=== PATIENT | female | born 1945 | race Caucasian/White ===

== ENCOUNTER 2017-08-31 15:48 | Emergency (ER) | payer OTHER ==
--- NOTE | 2017-08-31 17:05 | RAD ---
RIGHT KNEE 4 VIEWS: Date: 08/31/17 HISTORY: Fall. COMPARISON: None. FINDINGS: No acute fracture or malalignment. Small osteophytes. IMPRESSION: 1. No acute fracture or malalignment. 2. Mild degenerative disease. 3. Old injury of the fibular neck. POS: LIZY
[2017-08-31] MEDS ORDERED: Ketorolac Tromethamine 30 MG/ML VIAL ONE (17:45)
== END 2017-08-31 17:59 | disposition home or self-care (01) ==
LOC: ERS 15:48
DX: S80.02XA Contusion of left knee, initial encounter (principal); F31.9 Bipolar disorder, unspecified; F41.9 Anxiety disorder, unspecified; F17.210 Nicotine dependence, cigarettes, uncomplicated; W17.89XA Other fall from one level to another, initial encounter
CPT/HCPCS: 96372; J1885

== ENCOUNTER 2018-02-25 10:39 | Outpatient (CLI) | payer MEDICARE ==
[2018-02-25 12:00] LABS: #Basophils 0.1 thou/uL (0.0-0.2); #Eosinphils 0.1 thou/uL (0.0-0.7); #Lymphocytes 2.5 thou/uL (1.20-3.40); #Monocytes 0.4 thou/uL (0.11-0.59); #Neutrophils 4.1 thou/uL (1.40-6.50); %Basophils 0.9 % (0.0-1.0); %Eosinophils 1.5 % (0.0-10.0); %Lymphocytes 34.6 % (21.0-51.0); %Monocytes 5.4 % (0.0-10.0); %Neutrophils 57.6 % (42.0-75.0); Hemoglobin 16.4 g/dL (12.0-16.0); Mean Corpuscular HGB CONC 32.8 g/dL (32.0-36.0); Mean Corpuscular Hemoglobin 31.1 pg (27.0-31.0); Mean Corpuscular Volume 94.9 fl (81.0-99.0); Mean Platelet Volume 7.8 fL (7.4-10.4); Platelet Count 214 thou/uL (130-400); RBC Distribution Width 12.4 % (11.5-14.5); Red Blood Cell (RBC) Count 5.26 mill/uL (4.20-5.40); White Blood Cell (WBC) Count 7.2 thou/uL (4.8-10.8)
[2018-02-25 12:22] LABS: Anion Gap 14 mmol/L (10-20); BUN (Urea Nitrogen) 11 mg/dL (9.8-20.1); Calc. Creatinine Clearance 0 mL/min (70-130); Calcium 9.6 mg/dL (7.8-10.44); Carbon Dioxide 25 mmol/L (23-31); Chloride 104 mmol/L (98-107); Estimated GFR-MDRD 67; Glucose 83 mg/dL (80-115); Potassium 4.2 mmol/L (3.5-5.1); Sodium 139 mmol/L (136-145)
--- NOTE | 2018-02-25 14:11 | EKG ---
Test Reason : Blood Pressure : / mmHG Vent. Rate : 063 BPM Atrial Rate : 063 BPM P-R Int : 156 ms QRS Dur : 112 ms QT Int : 420 ms P-R-T Axes : 074 -56 066 degrees QTc Int : 429 ms Normal sinus rhythm Left anterior fascicular block Left ventricular hypertrophy with repolarization abnormality Cannot rule out Septal infarct , age undetermined Abnormal ECG Confirmed by ELBA ANTONY ([id number]) on 02/25/2018 2:10:36 PM Referred By: STEPHEN Confirmed By:ELBA ANTONY
== END 2018-02-25 10:40 | disposition home or self-care (01) ==
LOC: LABBT 10:39
PROVIDERS: ATTEND Surgery
DX: Z01.818 Encounter for other preprocedural examination (principal); C50.912 Malignant neoplasm of unspecified site of left female breast
CPT/HCPCS: 80048; 85025; 93005; 93010

== ENCOUNTER → 2018-03-03 | Day surgery (SDC) | payer MEDICARE ==
[2018-02-25 10:56] VITALS: BMI 26.6
[~2018-03-03] MED LIST: Bupivacaine/Epinephrine 0.25% 30 ML VIAL ONE; CEFAZOLIN/Water 2 GM/20 ML SYRINGE ONE; Dexamethasone 20 MG/5 ML VIAL ONE; Fentanyl 100 MCG/2 ML VIAL ONE; Glycopyrrolate 0.2 MG/ML 5 ML SYRINGE ONE; HYDROcodone/Acetaminophen 5/325 mg Tablet ONE; Lidocaine 1% PF 5 ML VIAL ONE; Lidocaine 2% 10 ML INJ ONE; Ondansetron HCl/PF 4 MG/2 ML Vial ONE; PROPOFOL 200 MG/20 ML VIAL ONE; SUGAMMADEX SODIUM 200 MG/2 ML VIAL ONE; ePHEDrine/0.9% NaCl/PF SYRINGE 50 mg/10 ml ONE
--- NOTE | 2018-03-03 11:07 | NM ---
NUCLEAR MEDICINE LYMPHOSCINITIGRAPHY: Date: 03/03/18 HISTORY: 72-year-old female with malignant neoplasm of left breast. TECHNIQUE: 0.4 mCi of technetium-99m filtered sulfur colloid divided into 4 doses in 4 tuberculin syringes, were injected in 4 locations in a left periareolar distribution after cleansing of the areolar with alcoh ol swabs. Immediate anterior and lateral scintigraphy of the upper chest obtained. FINDINGS: There are multiple foci of uptake in left axillary lymph nodes, and faint uptake in what appear to be two internal mammary lymph nodes. IMPRESSION: Successful left breast lymphoscintigraphy, with demonstration of left axillary sentinel lymph nodes. POS: LIZY
--- NOTE | 2018-03-03 11:23 | MMO ---
LEFT BREAST NEEDLE LOCALIZATION: INDICATION: Left breast invasive ductal carcinoma. TECHNIQUE: Informed consent was obtained. Preprocedure resolution expert images demonstrate a small mass and surgical clip seen within the left breast 6 o'clock position, anterior depth, corresponding to the small left breas t mass and clip demonstrated on the diagnostic mammogram performed at [facility] on 02/21/18. The patient was placed in CC compression in the left breast and the mass and biopsy clip were localized along the inferior aspect of the left breast. The inferior aspect of the left breast was then sterilely prepped. 1.5 cc of buffered 1% Lidocaine was administered into the subcutaneous tissues. Under mammographic guidance, a 5 cm [place] needle was guided through the mass lesion. Posit ioning was confirmed on a 90-degree lateral projection. The tip of the needle was positioned 1.4 cm from the level of the mass. The wire was deployed. The patient tolerated the procedure without diff iculty. The patient was then escorted to the preoperative holding suite for the left breast excision . IMPRESSION: BI-RADS category 6 - known malignancy. The patient has undergone needle and wire localization for th e left breast mass. The patient is undergoing left breast cancer excision. POS: OFF
--- NOTE | 2018-03-04 10:29 | OP ---
DATE OF PROCEDURE: 03/03/2018 PREOPERATIVE DIAGNOSIS: Left breast invasive ductal cell carcinoma. POSTOPERATIVE DIAGNOSIS: Left breast invasive ductal cell carcinoma. PROCEDURES: 1. Left breast partial mastectomy after needle localization. 2. Left deep axillary node biopsy (sentinel node protocol). SURGEON: Emile Olson M.D. ANESTHESIA: General. ESTIMATED BLOOD LOSS: Minimal. COMPLICATIONS: None. SPECIMENS: 1. Left breast mass marked with two short superior, one long lateral and sent to path for final diag nosis. 2. [place] node x2 sent to path for final diagnosis. INDICATION: The patient presents with a biopsy proven left breast invasive ductal cell carcinoma, cl inical stage is T1 N0 MX. Risks, benefits, and alternatives discussed. She gave consent for partial mastectomy. DESCRIPTION OF PROCEDURE: On the morning of surgery, the patient underwent needle localization wire placement to previous left breast biopsy place. She also underwent lymphoscintigraphy. Taken to the operating room and laid supine on the operating room supine on the table. After general anesthetic was obtained, her left breast, chest, axilla and proximal arms all prepped and draped in a sterile fa shion. Curved incision made along the inferior hairline of the left axilla. Cautery dissected down through the clavipectoral fascia to expose the axillary contents. Neoprobe was used to find the area of increased nuclear uptake. A 5 mL of methylene blue dye had been infiltrated under the right nipp le before the procedure and massaged for five minutes. A couple areas of blue dye uptake were found. They also have increased radionucleotide uptake as well. Counts on the back table in the 400-500s. Removal of these two areas, the background counts dropped to near 0. The axillary wound is irrigat ed and closed using 3-0 Vicryl, 4-0 Monocryl, and Dermabond. Next, an incision was made on the left breast along the areolar edge in the area of previous needle localization wire placement. Flaps are raised superior medially, inferiorly laterally around the needle localization wire. Specimen sent to specimen. X-ray reveals the previous clip to be in the specimen. The specimen is marked with two sh ort superior, one long lateral and sent to path for final diagnosis. The wound is irrigated. Local anesthetic is applied. The wound is closed using 3-0 Vicryl, 4-0 Monocryl, and Dermabond. The patie nt was en route to recovery in stable condition. All instrument counts, needle counts, lap counts ar e correct.
== END ==
LOC: SDC 06:30
PROVIDERS: ATTEND Surgery
PROC: 0HBU0ZZ Excision of Left Breast, Open Approach (ICD-10-PCS; principal; 2018-03-03)
PROC: 07B60ZX Excision of Left Axillary Lymphatic, Open Approach, Diagnostic (ICD-10-PCS; 2018-03-03)
DX: C50.812 Malignant neoplasm of overlapping sites of left female breast (principal); F31.9 Bipolar disorder, unspecified; F17.200 Nicotine dependence, unspecified, uncomplicated; Z17.0 Estrogen receptor positive status [ER+]; Z88.1 Allergy status to other antibiotic agents; Z87.891 Personal history of nicotine dependence
CPT/HCPCS: 19281; 19301; 38525; 78195; 88184; 88307; 88331; 88332; 88333; 88334; 96374; A9541; Q9968; J1100; J2001; J2405; J2704; J3010

== ENCOUNTER 2018-03-23 10:38 | Outpatient (CLI) | payer MEDICARE | END 2018-03-23 10:39 | disposition home or self-care (01) | LOC: BICMAMMO 10:38 | PROVIDERS: ATTEND Surgery | DX: Z13.820 Encounter for screening for osteoporosis (principal); M85.852 Other specified disorders of bone density and structure, left thigh | CPT/HCPCS: 77080 ==

== ENCOUNTER 2019-01-27 10:13 | Outpatient (CLI) | payer MEDICARE ==
--- NOTE | 2019-01-27 11:57 | MMO ---
Bilateral MAMMO Bilat Diag [facility]DI+SHAN. CLINICAL HISTORY: Patient is 73 years old and is seen for diagnostic exam. The patient has no family history of breast cancer. The patient has a history of malignant (generic) in the left breast in January,. The patient has a history of left Ultrasound Guided Core Biopsy at age 72 - malignant and left Lumpectomy in Mar, 2018 - malignant. VIEWS: The views performed were: bilateral craniocaudal with tomosynthesis; bilateral mediolateral oblique with tomosynthesis; and bilateral mediolateral. FILMS COMPARED: The present examination has been compared to prior imaging studies performed at [facility] on 06/28/2012, 07/05/2013 and 02/06/2016, and at [facility] on 01/24/2018 and 02/11/2018. MAMMOGRAM FINDINGS: There are scattered fibroglandular densities. There is a stable post-surgical scar seen in the left breast. There are no suspicious masses, suspicious calcifications, or new areas of architectural distortion. IMPRESSION: THERE IS NO MAMMOGRAPHIC EVIDENCE OF MALIGNANCY. A ROUTINE FOLLOW-UP MAMMOGRAM IN 1 YEAR IS RECOMMENDED. THE RESULTS OF THIS EXAM WERE SENT TO THE PATIENT. ACR BI-RADS Category 2 - Benign finding MAMMOGRAPHY NOTE: 1. A negative mammogram report should not delay a biopsy if a dominant of clinically suspicious mass is present. 2. Approximately 10% to 15% of breast cancers are not detected by mammography. 3. Adenosis and dense breasts may obscure an underlying neoplasm.
== END 2019-01-27 10:14 | disposition home or self-care (01) ==
LOC: BICMAMMO 10:13 → EDSTATUS 10:30
PROVIDERS: ATTEND Nurse Practitioner Family
DX: C50.912 Malignant neoplasm of unspecified site of left female breast (principal)
CPT/HCPCS: 77066; G0279

== ENCOUNTER 2019-07-11 09:29 | Outpatient (CLI) | payer MEDICARE ==
--- NOTE | 2019-07-11 11:37 | CT ---
CT PULMONARY LUNG SCAN WITHOUT CONTRAST: Date: 07/11/19 INDICATION: 73-year-old female with 50+ pack/year smoking history; current smoker; nicotine dependence. COMPARISON: None. FINDINGS: There are numerous scattered ground-glass pulmonary nodules. The most conspicuous nodule is seen with in the anterior right upper lobe, adjacent to the right minor fissure, measuring 1.8 cm. Multiple sma ll scattered ground-glass nodules are seen within the right upper lobe, right lower lobe, left lower lobe, and left upper lobe. There is scattered centrilobular emphysema. There are coronary artery and thoracic aortic calcifications. There is a 4.1 cm left adrenal mass. Right adrenal gland is normal appearing. There are calcified gra nuloma within the spleen. There is partial visualization of an ACDF involving the cervical spine. There is multilevel spondylos is of the thoracic spine. No suspicious osteolytic or osteoblastic lesion is identified. IMPRESSION: 1. Lung-RADS category 3 - Probably benign. There are multiple scattered ground-glass nodules through out both lungs. This raises the possibility of an infectious or inflammatory etiology. Would recommen d consideration with appropriate broad spectrum antibiotics followed by a low dose CT examination in 1-2 months to document stability or resolution. 2. Category S: 4.1 cm left adrenal mass. Recommend further evaluation with a CT of the abdomen util izing adrenal mass protocol for further characterization. CODE T. POS: OFF
== END 2019-07-11 09:30 | disposition home or self-care (01) ==
LOC: CT 09:29
PROVIDERS: ATTEND Internal Medicine Hematology & Oncology
DX: F17.210 Nicotine dependence, cigarettes, uncomplicated (principal); R91.8 Other nonspecific abnormal finding of lung field; E27.8 Other specified disorders of adrenal gland
CPT/HCPCS: G0297

== ENCOUNTER 2019-09-07 08:17 | Outpatient (CLI) | payer MEDICARE ==
--- NOTE | 2019-09-07 10:02 | CT ---
EXAM: CT Abdomen W WO Con PROVIDED CLINICAL HISTORY: Left adrenal mass noted on CT pulmonary lung scan. COMPARISON: CT pulmonary lung scan on 07/11/2019. FINDINGS: Previously described left adrenal mass is again noted. Measurement on today's examination is approxim ately 4 cm. Attenuation coefficients obtained in several areas of the left adrenal lesion on noncontrast imaging suggests this represents an adrenal adenoma. The lung bases are clear. Calcified granulomata are seen in the spleen. There is a lobulated appearance of each kidney likely to lobulation. A nonobstructing calculus in the inferior pole left kidney measuring 4 mm is present. The liver, pancreas, and right adrenal gland demonstrate a normal CT appearance. There is a large calculus seen in the gallbladder measuring 3.5 cm. Vascular calcifications are seen in the abdominal aorta involving the iliac arteries. Incidental note is made of a retroaortic left renal vein. There is colonic diverticulosis seen involving the visualized colon. There is a small amount of fluid seen in the region of the epicardial fat on the right with may repre sent small amount of fluid within a pericardial recess. No free fluid, fluid collection, or lymphadenopathy is seen in the abdomen. IMPRESSION: 1. Left adrenal mass with attenuation coefficients on precontrast imaging most compatible with an adr enal adenoma. 2. Cholelithiasis with largest calculus in the gallbladder lumen.
[2019-09-07] MEDS ORDERED: Iopamidol-370 76% 500 ML 1 ML ONE (15:44)
== END 2019-09-07 08:18 | disposition home or self-care (01) ==
LOC: BICCT 08:17
PROVIDERS: ATTEND Internal Medicine Hematology & Oncology
DX: E27.8 Other specified disorders of adrenal gland (principal); R93.7 Abnormal findings on diagnostic imaging of other parts of musculoskeletal system; K80.20 Calculus of gallbladder without cholecystitis without obstruction
CPT/HCPCS: 74170; 82565; Q9967

== ENCOUNTER 2020-04-25 15:18 | Emergency (ER) | payer MEDICARE ==
--- NOTE | 2020-04-25 16:14 | RAD ---
XR Knee Rt 4 View STANDARD HISTORY: Right knee pain FINDINGS: No fracture or dislocation or bony destruction is identified. No significant osteophytosis is seen. N o joint effusion is identified.
[2020-04-25] MEDS ORDERED: Ketorolac Tromethamine 30 MG/ML VIAL ONE (16:15)
== END 2020-04-25 16:55 | disposition home or self-care (01) ==
LOC: ERS 15:18
DX: M25.561 Pain in right knee (principal); F41.9 Anxiety disorder, unspecified; F31.9 Bipolar disorder, unspecified; F17.210 Nicotine dependence, cigarettes, uncomplicated
CPT/HCPCS: 96372; J1885

== ENCOUNTER 2021-01-02 10:49 | Outpatient (CLI) | payer MEDICARE | END 2021-01-02 10:50 | disposition home or self-care (01) | LOC: BICCT 10:49 | PROVIDERS: ATTEND Internal Medicine Hematology & Oncology | DX: R91.1 Solitary pulmonary nodule (principal); R91.8 Other nonspecific abnormal finding of lung field; D35.02 Benign neoplasm of left adrenal gland | CPT/HCPCS: 71260; 82565 ==

== ENCOUNTER 2021-08-22 10:05 | Outpatient (CLI) | payer MEDICARE | END 2021-08-22 10:06 | disposition home or self-care (01) | LOC: BICMAMMO 10:05 | PROVIDERS: ATTEND Internal Medicine Hematology & Oncology | DX: Z08 Encounter for follow-up examination after completed treatment for malignant neoplasm (principal); M85.80 Other specified disorders of bone density and structure, unspecified site; M81.0 Age-related osteoporosis without current pathological fracture; Z85.3 Personal history of malignant neoplasm of breast | CPT/HCPCS: 77066; 77080; G0279 ==

== ENCOUNTER 2021-09-06 14:38 | Emergency (ER) | payer MEDICARE ==
[2021-09-06] MEDS ORDERED: Ketorolac Tromethamine 30 MG/ML VIAL ONE (17:04)
== END 2021-09-06 17:22 | disposition home or self-care (01) ==
LOC: ERS 14:38
DX: M54.50 Low back pain, unspecified (principal); F17.210 Nicotine dependence, cigarettes, uncomplicated
CPT/HCPCS: 96372; 99283; J1885

== ENCOUNTER 2022-01-01 12:16 | Outpatient (CLI) | payer MEDICARE | END 2022-01-01 12:17 | disposition home or self-care (01) | LOC: BICCT 12:16 | PROVIDERS: ATTEND Internal Medicine Hematology & Oncology | DX: C50.812 Malignant neoplasm of overlapping sites of left female breast (principal); R91.1 Solitary pulmonary nodule; F17.210 Nicotine dependence, cigarettes, uncomplicated; J98.4 Other disorders of lung; I70.90 Unspecified atherosclerosis; E27.8 Other specified disorders of adrenal gland | CPT/HCPCS: 71260; 82565 ==

== ENCOUNTER 2023-01-28 12:13 | Emergency (ER) | payer OTHER ==
[2023-01-28 13:55] LABS: #Eosinphils 0.1 thou/uL (0.0-0.7); #Lymphocytes 2.3 thou/uL (1.20-3.40); #Monocytes 0.8 thou/uL (0.11-0.59); #Neutrophils 6.6 thou/uL (1.40-6.50); %Eosinophils 0.7 % (0.0-10.0); %Lymphocytes 23.3 % (21.0-51.0); %Monocytes 7.9 % (0.0-10.0); Hemoglobin 14.8 g/dL (12.0-16.0); Mean Corpuscular HGB CONC 30.5 g/dL (32.0-36.0); Mean Corpuscular Volume 98.6 fl (78.0-98.0); Mean Platelet Volume 7.2 fL (7.4-10.4); Platelet Count 241 10x3/uL (130-400); RBC Distribution Width 12.3 % (11.5-14.5); Red Blood Cell (RBC) Count 4.92 mill/uL (4.20-5.40); White Blood Cell (WBC) Count 9.8 10x3/uL (4.8-10.8)
[2023-01-28 14:21] LABS: ALT (SGPT) 15 U/L (8-55); AST (SGOT) 15 U/L (5-34); Albumin 3.3 g/dL (3.4-4.8); Alkaline Phosphatase 86 U/L (40-110); Anion Gap 13 mmol/L (10-20); BUN (Urea Nitrogen) 14 mg/dL (9.8-20.1); Bilirubin, Total 0.2 mg/dL (0.2-1.2); CK (CPK) 54 U/L (29-168); Calc. Creatinine Clearance 0 mL/min (70-130); Calcium 8.9 mg/dL (7.8-10.44); Carbon Dioxide 29 mmol/L (23-31); Chloride 102 mmol/L (98-107); Estimated GFR 77; Globulin 3.5 g/dL (2.4-3.5); Glucose 78 mg/dL (83-110); Potassium 3.6 mmol/L (3.5-5.1); Protein, Total 6.8 g/dL (5.8-8.1); Sodium 140 mmol/L (136-145)
[2023-01-28] MEDS ORDERED: Aspirin Chewable 81 MG TAB ONE (17:48)
[2023-01-28] MEDS ORDERED: Ketorolac Tromethamine 30 MG/ML VIAL ONE (17:48)
== END 2023-01-28 18:20 | disposition home or self-care (01) ==
LOC: ERS 12:13
DX: M54.6 Pain in thoracic spine (principal); J18.0 Bronchopneumonia, unspecified organism; R01.1 Cardiac murmur, unspecified; F17.210 Nicotine dependence, cigarettes, uncomplicated
CPT/HCPCS: 36415; 71045; 71275; 80053; 82550; 83880; 84484; 85025; 93005; 94760; 96374; J1885

== ENCOUNTER 2023-07-09 13:14 | Outpatient (CLI) | payer OTHER | END 2023-07-09 13:15 | disposition home or self-care (01) | LOC: BICMAMMO 13:14 | PROVIDERS: ATTEND Nurse Practitioner Family | DX: Z08 Encounter for follow-up examination after completed treatment for malignant neoplasm (principal); Z85.3 Personal history of malignant neoplasm of breast | CPT/HCPCS: 77066; G0279 ==

== ENCOUNTER 2024-10-12 11:06 | Emergency (ER) | payer OTHER ==
[2024-10-12 11:42] LABS: #Basophils 0.05 10x3/uL (0.0-0.2); %Basophils 0.9 % (0.0-1.0); %Eosinophils 3.2 % (0.0-10.0); %Lymphocytes 18.2 % (21.0-51.0); %Monocytes 8.3 % (0.0-10.0); Hematocrit 53.6 % (36.0-47.0); Mean Corpuscular HGB CONC 31.7 g/dL (32.0-36.0); Mean Corpuscular Hemoglobin 30.2 pg (27.0-31.0); Mean Corpuscular Volume 95.4 fL (78.0-98.0); Mean Platelet Volume 10.8 fL (7.4-10.4); Platelet Count 142 10x3/uL (130-400); RBC Distribution Width 13.7 % (11.5-14.5); Red Blood Cell (RBC) Count 5.62 mill/uL (4.20-5.40)
[2024-10-12 11:57] LABS: ALT (SGPT) 14 U/L (8-55); AST (SGOT) 15 U/L (5-34); Albumin 3.5 g/dL (3.4-4.8); Alkaline Phosphatase 102 U/L (40-110); Anion Gap 15 mmol/L (10-20); BUN (Urea Nitrogen) 10 mg/dL (9.8-20.1); Bilirubin, Total 0.6 mg/dL (0.2-1.2); Calc. Creatinine Clearance 0 mL/min (70-130); Calcium 9.6 mg/dL (7.8-10.44); Carbon Dioxide 27 mmol/L (23-31); Chloride 103 mmol/L (98-107); Estimated GFR 85; Globulin 3.8 g/dL (2.4-3.5); Glucose 108 mg/dL (83-110); Potassium 3.7 mmol/L (3.5-5.1); Protein, Total 7.3 g/dL (5.8-8.1); Sodium 141 mmol/L (136-145)
[2024-10-12] MEDS ORDERED: Acetaminophen 500 MG TAB ONE (12:07)
== END 2024-10-12 13:58 | disposition home or self-care (01) ==
LOC: ERS 11:06
DX: L03.116 Cellulitis of left lower limb (principal); L03.115 Cellulitis of right lower limb; I10 Essential (primary) hypertension; F17.210 Nicotine dependence, cigarettes, uncomplicated
CPT/HCPCS: 36415; 80053; 83605; 85025; 85379

== ENCOUNTER 2024-10-16 19:06 | Inpatient (IN) | payer OTHER ==
[2024-10-16 19:34] VITALS: BMI 33.3
[2024-10-16] MEDS ORDERED: Ondansetron PF 4 MG/2 ML Vial IVP PRN (20:07)
[2024-10-16] MEDS ORDERED: Acetaminophen 325 MG TAB PO PRN (20:07)
[2024-10-16 21:02] LABS: Troponin I 0.062 ng/mL (< 0.028)
[2024-10-16] MEDS ORDERED: Ipratropium/Albuterol 3 ML NEB EZPAP PRN (21:41)
[2024-10-16] MEDS: Ipratropium/Albuterol 3 ML NEB IPPB SCH (22:34)
[2024-10-16] MEDS: Vancomycin (BATCH) 2.5 GM in Premix 1 BAG IVPB SCH (22:39)
[2024-10-17 01:37] LABS: Troponin I 0.038 ng/mL (< 0.028)
[2024-10-17] MEDS: Cefepime 1 GM in Sodium Chloride 0.9% 100 ML IVPB SCH (03:14)
[2024-10-17 04:44] LABS: #Basophils Less than 0.03 10x3/uL (0.0-0.2); #Eosinophils Less than 0.03 10x3/uL (0.0-0.7); %Basophils 0.4 % (0.0-1.0); %Lymphocytes 12.4 % (21.0-51.0); %Monocytes 4.6 % (0.0-10.0); %Neutrophils 82.1 % (42.0-75.0); Hematocrit 48.7 % (36.0-47.0); Hemoglobin 15.1 g/dL (12.0-16.0); Mean Corpuscular Hemoglobin 29.8 pg (27.0-31.0); Mean Corpuscular Volume 96.2 fL (78.0-98.0); Mean Platelet Volume 10.7 fL (7.4-10.4); Platelet Count 173 10x3/uL (130-400); RBC Distribution Width 13.7 % (11.5-14.5); Red Blood Cell (RBC) Count 5.06 mill/uL (4.20-5.40)
[2024-10-17 04:54] LABS: Anion Gap 10 mmol/L (10-20); BUN (Urea Nitrogen) 11 mg/dL (9.8-20.1); Calc. Creatinine Clearance 98 mL/min (70-130); Calcium 8.9 mg/dL (7.8-10.44); Carbon Dioxide 29 mmol/L (23-31); Chloride 101 mmol/L (98-107); Estimated GFR 75; Glucose 125 mg/dL (83-110); Magnesium 2.1 mg/dL (1.6-2.6); Potassium 4.3 mmol/L (3.5-5.1); Sodium 136 mmol/L (136-145)
[2024-10-17] MEDS: Furosemide 40 MG (4 mL) VIAL SLOW IVP SCH (05:11)
[2024-10-17] MEDS: Vancomycin (BATCH) 1.25 GM in Premix 1 BAG IVPB SCH (09:45)
[2024-10-17] MEDS: Enoxaparin 40 MG (0.4 mL) SYRINGE SC SCH (09:45)
[2024-10-17] MEDS: Cefepime 2 GM in Sodium Chloride 0.9% 100 ML IVPB SCH (16:54)
[2024-10-17] MEDS: lamoTRIgine 100 MG TAB PO SCH (20:15)
[2024-10-17] MEDS: traZODone HCl 150 MG TAB PO SCH (20:15)
[2024-10-18 05:33] LABS: #Basophils 0.06 10x3/uL (0.0-0.2); %Basophils 0.9 % (0.0-1.0); %Eosinophils 2.8 % (0.0-10.0); %Lymphocytes 24.8 % (21.0-51.0); %Monocytes 9.1 % (0.0-10.0); %Neutrophils 62.3 % (42.0-75.0); Hematocrit 49.1 % (36.0-47.0); Hemoglobin 14.8 g/dL (12.0-16.0); Mean Corpuscular HGB CONC 30.1 g/dL (32.0-36.0); Mean Corpuscular Hemoglobin 29.7 pg (27.0-31.0); Mean Corpuscular Volume 98.6 fL (78.0-98.0); Mean Platelet Volume 10.8 fL (7.4-10.4); Platelet Count 187 10x3/uL (130-400); RBC Distribution Width 13.7 % (11.5-14.5); Red Blood Cell (RBC) Count 4.98 mill/uL (4.20-5.40)
[2024-10-18 06:46] LABS: Vancomycin, Random 21.5 ug/mL (See Comment)
[2024-10-18 06:58] LABS: Anion Gap 13 mmol/L (10-20); BUN (Urea Nitrogen) 16 mg/dL (9.8-20.1); Calc. Creatinine Clearance 103 mL/min (70-130); Calcium 8.9 mg/dL (7.8-10.44); Carbon Dioxide 33 mmol/L (23-31); Chloride 100 mmol/L (98-107); Estimated GFR 81; Glucose 87 mg/dL (83-110); Magnesium 2.1 mg/dL (1.6-2.6); Potassium 3.7 mmol/L (3.5-5.1); Sodium 142 mmol/L (136-145)
[2024-10-18] MEDS: VANCOMYCIN 1.25 GM/250 ML BAG 1.25 GM in Premix 1 BAG IVPB SCH (08:50)
[2024-10-18] MEDS: risperiDONE 0.25 MG TAB PO SCH (08:58)
[2024-10-18] MEDS: Anastrozole 1 MG TAB PO SCH (08:58)
[2024-10-18] MEDS ORDERED: FLU (Fluad Triv) TS24-25 (65UP)/MF59C/PF 45 MCG/0.5 ML Syringe IM ONE (09:00)
[2024-10-18] MEDS: BuPROPion 100 MG SR.TAB PO SCH (09:00)
[2024-10-18] MEDS: FLU (Fluad Triv) TS24-25 (65UP)/MF59C/PF 45 MCG/0.5 ML Syringe ONE (14:03)
[2024-10-18] MEDS: Vancomycin 1 GM in Premix 1 BAG IVPB SCH (20:37)
[2024-10-19 05:05] LABS: #Basophils 0.05 10x3/uL (0.0-0.2); %Basophils 0.7 % (0.0-1.0); %Eosinophils 3.7 % (0.0-10.0); %Lymphocytes 20.7 % (21.0-51.0); %Monocytes 11.3 % (0.0-10.0); %Neutrophils 63.5 % (42.0-75.0); Hematocrit 48.1 % (36.0-47.0); Hemoglobin 14.9 g/dL (12.0-16.0); Mean Corpuscular Hemoglobin 29.4 pg (27.0-31.0); Mean Corpuscular Volume 95.1 fL (78.0-98.0); Mean Platelet Volume 10.9 fL (7.4-10.4); Platelet Count 179 10x3/uL (130-400); RBC Distribution Width 13.5 % (11.5-14.5); Red Blood Cell (RBC) Count 5.06 mill/uL (4.20-5.40)
[2024-10-19 05:28] LABS: Anion Gap 12 mmol/L (10-20); BUN (Urea Nitrogen) 16 mg/dL (9.8-20.1); Calc. Creatinine Clearance 103 mL/min (70-130); Calcium 9.3 mg/dL (7.8-10.44); Carbon Dioxide 36 mmol/L (23-31); Chloride 96 mmol/L (98-107); Estimated GFR 81; Glucose 94 mg/dL (83-110); Potassium 3.5 mmol/L (3.5-5.1); Sodium 140 mmol/L (136-145)
[2024-10-19] MEDS: Citalopram 20 MG TAB PO SCH (09:15)
[2024-10-20 04:14] LABS: #Basophils 0.05 10x3/uL (0.0-0.2); %Basophils 0.9 % (0.0-1.0); %Eosinophils 5.7 % (0.0-10.0); %Lymphocytes 25.3 % (21.0-51.0); %Monocytes 12.3 % (0.0-10.0); %Neutrophils 55.4 % (42.0-75.0); Hematocrit 49.3 % (36.0-47.0); Hemoglobin 15.6 g/dL (12.0-16.0); Mean Corpuscular HGB CONC 31.6 g/dL (32.0-36.0); Mean Corpuscular Hemoglobin 30.4 pg (27.0-31.0); Mean Corpuscular Volume 95.9 fL (78.0-98.0); Mean Platelet Volume 10.5 fL (7.4-10.4); Platelet Count 181 10x3/uL (130-400); RBC Distribution Width 13.2 % (11.5-14.5); Red Blood Cell (RBC) Count 5.14 mill/uL (4.20-5.40)
[2024-10-20 04:31] LABS: Anion Gap 9 mmol/L (10-20); BUN (Urea Nitrogen) 14 mg/dL (9.8-20.1); Calc. Creatinine Clearance 96 mL/min (70-130); Calcium 9.2 mg/dL (7.8-10.44); Carbon Dioxide 38 mmol/L (23-31); Chloride 95 mmol/L (98-107); Estimated GFR 74; Glucose 96 mg/dL (83-110); Potassium 3.4 mmol/L (3.5-5.1); Sodium 139 mmol/L (136-145); Vancomycin, Random 19.7 ug/mL (See Comment)
[2024-10-20 10:10] VITALS: BP 128/60; TEMP 98.2
== END 2024-10-20 13:42 | disposition home health service (06) | DRG 602 ==
LOC: 2NO 19:06 → OBSVTOIN 20:07
PROVIDERS: ADMIT Internal Medicine; ATTEND Family Medicine
DX: L03.115 Cellulitis of right lower limb (principal); I50.33 Acute on chronic diastolic (congestive) heart failure; J96.01 Acute respiratory failure with hypoxia; J44.1 Chronic obstructive pulmonary disease with (acute) exacerbation; I24.89 Other forms of acute ischemic heart disease; L03.116 Cellulitis of left lower limb; E78.5 Hyperlipidemia, unspecified; F31.9 Bipolar disorder, unspecified; I27.20 Pulmonary hypertension, unspecified; R91.1 Solitary pulmonary nodule
CPT/HCPCS: 36415; 80048; 80202; 83735; 84484; 85025; 86141; 87040; 90653; 94640; 97139; J0692; J1650; J1940; J3370; J7620